=== PATIENT | female | born 1975 | race Caucasian/White ===

== ENCOUNTER 2017-12-23 11:55 | Emergency (ER) | payer OTHER ==
[2017-12-23] MEDS ORDERED: MORPHINE SULFATE 4 MG/ML SYRINGE IVP STA (12:03)
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
[2017-12-23 13:23] VITALS: BP 145/88; PULSE 77; RESP 18; TEMP 98.2
== END 2017-12-23 13:29 | disposition home or self-care (01) ==
LOC: EC 11:55
DX: S16.1XXA Strain of muscle, fascia and tendon at neck level, initial encounter (principal); R00.0 Tachycardia, unspecified; R06.03 Acute respiratory distress; R07.89 Other chest pain; F17.200 Nicotine dependence, unspecified, uncomplicated; Z88.5 Allergy status to narcotic agent; V59.59XA Passenger in pick-up truck or van injured in collision with other motor vehicles in traffic accident, initial encounter; Y93.89 Activity, other specified; Y92.89 Other specified places as the place of occurrence of the external cause
CPT/HCPCS: 71046; 72125; 70450; 99285; 96374; J2270

== ENCOUNTER 2018-01-12 13:23 | Emergency (ER) | payer OTHER ==
[2018-01-12] MEDS ORDERED: ORPHENADRINE 30 MG/ML 2 ML VIAL IM STA (15:03)
[2018-01-12 15:12] VITALS: BP 148/98; PULSE 87; RESP 18; TEMP 98.7
[2018-01-12] MEDS ORDERED: ACETAMINOPHEN TAB 500 MG TAB PO STA (15:12)
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
== END 2018-01-12 15:52 | disposition home or self-care (01) ==
LOC: EC 13:23
DX: S16.1XXA Strain of muscle, fascia and tendon at neck level, initial encounter (principal); M25.512 Pain in left shoulder; F17.200 Nicotine dependence, unspecified, uncomplicated; Z88.5 Allergy status to narcotic agent; Z53.8 Procedure and treatment not carried out for other reasons; V89.2XXA Person injured in unspecified motor-vehicle accident, traffic, initial encounter; Y92.410 Unspecified street and highway as the place of occurrence of the external cause
CPT/HCPCS: 99284

== ENCOUNTER 2018-01-30 21:59 | Inpatient (IN) | payer OTHER ==
[2018-01-30 22:09] VITALS: RESP 18
[2018-01-30] MEDS ORDERED: SODIUM CHLORIDE 0.9% 1,000 ML IV STA (22:09)
[2018-01-30 22:22] LABS: Basophils % (A) 0 %; Eosinophils # (A) 0.1 k/uL (0-0.7); Eosinophils % (A) 1 %; HCT 54.4 % (34.0-46.0); HGB 17.9 gm/dL (11.4-16.0); Lymphocytes # (A) 1.3 k/uL (1.0-4.8); Lymphocytes % (A) 9 %; MCH 30.8 pg (25.0-35.0); MCHC 32.9 g/dL (31.0-37.0); MCV 93.8 fL (80.0-100.0); Mean Platelet Volume 7.2; Monocytes # (A) 0.5 k/uL (0-1.0); Monocytes % (A) 4 %; Neutrophils # (A) 12.2 k/uL (1.3-7.7); Neutrophils % (A) 85 %; Platelet Count 297 k/uL (150-450); RBC 5.79 m/uL (3.80-5.40); RDW 13.6 % (11.5-15.5); WBC 14.3 k/uL (3.8-10.6)
[2018-01-30 22:31] LABS: ALT 20 U/L (9-52); AST 25 U/L (14-36); Albumin 4.6 g/dL (3.5-5.0); Alkaline Phosphatase 79 U/L (38-126); Anion Gap 21 mmol/L; Blood Urea Nitrogen 10 mg/dL (7-17); Calcium 10.2 mg/dL (8.4-10.2); Carbon Dioxide 15 mmol/L (22-30); Chloride 102 mmol/L (98-107); Glucose 168 mg/dL (74-99); Magnesium 1.8 mg/dL (1.6-2.3); Sodium 138 mmol/L (137-145); Total Bilirubin 0.6 mg/dL (0.2-1.3); Total Protein 7.5 g/dL (6.3-8.2)
[2018-01-30 22:42] LABS: D-Dimer 0.53 mg/L FEU (<0.60); INR 1.1 (<1.2); Prothrombin Time 10.6 sec (9.0-12.0)
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
[2018-01-30 22:47] LABS: Partial Thromboplastin Time 21.1 sec (22.0-30.0)
[2018-01-30 22:58] LABS: Creatine Kinase MB 1.3 ng/mL (0.0-2.4)
[2018-01-30 22:59] LABS: Appearance,Urine Clear (Clear); Bilirubin,Urine Negative (Negative); Blood,Urine Small (Negative); Color,Urine Yellow; Glucose,Urine (UA) Negative (Negative); Hyaline Casts,Urine 4 /lpf (0-2); Ketones,Urine 1+ (Negative); Leukocyte Esterase,Urine Negative (Negative); Mucus,Urine Rare /hpf; Nitrite,Urine Negative (Negative); PH, Urine 6.5 (5.0-8.0); Protein,Urine Trace (Negative); RBC,Urine 8 /hpf (0-5); Specific Gravity,Urine 1.012 (1.001-1.035); Squamous Epithelial Cell,Urine 1 /hpf (0-4); Urobilinogen,Urine <2.0 mg/dL (<2.0); WBC,Urine 3 /hpf (0-5)
[2018-01-30 23:05] LABS: Amphetamine Screen,Urine Detected (NotDetected); Barbiturate Screen,Urine Not Detected (NotDetected); Benzodiazepines Screen,Urine Not Detected (NotDetected); Cocaine Screen,Urine Not Detected (NotDetected); Methadone Screen, Urine Not Detected (NotDetected); Opiate Screen,Urine Not Detected (NotDetected); Oxycodone Screen, Urine Not Detected (NotDetected); Phencyclidine Screen,Urine Not Detected (NotDetected); Tricyclic Antidepressant,Urine Not Detected (NotDetected); Urn Cannabinoid Scrn Not Detected (NotDetected)
[2018-01-30 23:18] LABS: Troponin I 0.06 ng/mL (0.000-0.034)
--- NOTE | 2018-01-30 23:26 | XR ---
EXAMINATION TYPE: XR chest 2V DATE OF EXAM: 01/30/2018 COMPARISON: 12/23/2017 HISTORY: Syncope TECHNIQUE: Frontal and lateral views of the chest are obtained. FINDINGS: Heart and mediastinum are normal. Lungs are clear of consolidation. There is no pleural ef fusion. Bony thorax is intact. Pulmonary vascularity is normal. IMPRESSION: No active cardiopulmonary disease. No change.
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
[2018-01-31] MEDS ORDERED: NALOXONE 0.4 MG/ML 1 ML VIAL IV PRN (00:44)
[2018-01-31] MEDS ORDERED: IBUPROFEN 800 MG TAB PO PRN (00:48)
[2018-01-31] MEDS ORDERED: LORazepam 2 MG/ML INJ IV PRN (00:48)
--- NOTE | 2018-01-31 00:50 | ED ---
Medical Decision Making - Medical Decision Making Patient does smoke cigarettes we did discuss smoking cessation and the risks of smoking cigarettes. Additionally we did discuss possibilities of withdrawal symptoms. The patient does not believe she'll have withdrawal symptoms and is declining a nicotine patch at this time. Total conversation lasting 3.1 minutes - Lab Data Result diagrams: 01/30/18 22:08 01/30/18 22:08 Lab Results 01/30/18 01/30/18 01/30/18 Range/Units 22:08 22:08 22:08 WBC 14.3 H (3.8-10.6) k/uL RBC 5.79 H (3.80-5.40) m/uL Hgb 17.9 H (11.4-16.0) gm/dL Hct 54.4 H (34.0-46.0) % MCV 93.8 (80.0-100.0) fL MCH 30.8 (25.0-35.0) pg MCHC 32.9 (31.0-37.0) g/dL RDW 13.6 (11.5-15.5) % Plt Count 297 (150-450) k/uL Neutrophils % 85 % Lymphocytes % 9 % Monocytes % 4 % Eosinophils % 1 % Basophils % 0 % Neutrophils # 12.2 H (1.3-7.7) k/uL Lymphocytes # 1.3 (1.0-4.8) k/uL Monocytes # 0.5 (0-1.0) k/uL Eosinophils # 0.1 (0-0.7) k/uL Basophils # 0.0 (0-0.2) k/uL PT (9.0-12.0) sec INR (<1.2) APTT (22.0-30.0) sec D-Dimer (<0.60) mg/L FEU Sodium 138 (137-145) mmol/L Potassium 4.0 (3.5-5.1) mmol/L Chloride 102 (98-107) mmol/L Carbon Dioxide 15 L (22-30) mmol/L Anion Gap 21 mmol/L BUN 10 (7-17) mg/dL Creatinine 0.50 L (0.52-1.04) mg/dL Est GFR (CKD-EPI)AfAm >90 (>60 ml/min/1.73 sqM) Est GFR (CKD-EPI)NonAf >90 (>60 ml/min/1.73 sqM) Glucose 168 H (74-99) mg/dL Calcium 10.2 (8.4-10.2) mg/dL Magnesium 1.8 (1.6-2.3) mg/dL Total Bilirubin 0.6 (0.2-1.3) mg/dL AST 25 (14-36) U/L ALT 20 (9-52) U/L Alkaline Phosphatase 79 (38-126) U/L Total Creatine Kinase 89 (30-135) U/L CK-MB (CK-2) 1.3 (0.0-2.4) ng/mL CK-MB (CK-2) Rel Index 1.5 Troponin I 0.060 H* (0.000-0.034) ng/mL Total Protein 7.5 (6.3-8.2) g/dL Albumin 4.6 (3.5-5.0) g/dL Urine Color Urine Appearance (Clear) Urine pH (5.0-8.0) Ur Specific [place] (1.001-1.035) Urine Protein (Negative) Urine Glucose (UA) (Negative) Urine Ketones (Negative) Urine Blood (Negative) Urine Nitrite (Negative) Urine Bilirubin (Negative) Urine Urobilinogen (<2.0) mg/dL Ur Leukocyte Esterase (Negative) Urine RBC (0-5) /hpf Urine WBC (0-5) /hpf Ur Squamous Epith Cells (0-4) /hpf Hyaline Casts (0-2) /lpf Urine Mucus (None) /hpf Urine HCG, Qual (Not Detectd) Urine Opiates Screen (NotDetected) Ur Oxycodone Screen (NotDetected) Urine Methadone Screen (NotDetected) Ur Propoxyphene Screen (NotDetected) Ur Barbiturates Screen (NotDetected) U Tricyclic Antidepress (NotDetected) Ur Phencyclidine Scrn (NotDetected) Ur Amphetamines Screen (NotDetected) U Methamphetamines Scrn (NotDetected) U Benzodiazepines Scrn (NotDetected) Urine Cocaine Screen (NotDetected) U Marijuana (THC) Screen (NotDetected) 01/30/18 01/30/18 01/30/18 Range/Units 22:08 22:45 22:45 WBC (3.8-10.6) k/uL RBC (3.80-5.40) m/uL Hgb (11.4-16.0) gm/dL Hct (34.0-46.0) % MCV (80.0-100.0) fL MCH (25.0-35.0) pg MCHC (31.0-37.0) g/dL RDW (11.5-15.5) % Plt Count (150-450) k/uL Neutrophils % % Lymphocytes % % Monocytes % % Eosinophils % % Basophils % % Neutrophils # (1.3-7.7) k/uL Lymphocytes # (1.0-4.8) k/uL Monocytes # (0-1.0) k/uL Eosinophils # (0-0.7) k/uL Basophils # (0-0.2) k/uL PT 10.6 (9.0-12.0) sec INR 1.1 (<1.2) APTT 21.1 L (22.0-30.0) sec D-Dimer 0.53 (<0.60) mg/L FEU Sodium (137-145) mmol/L Potassium (3.5-5.1) mmol/L Chloride (98-107) mmol/L Carbon Dioxide (22-30) mmol/L Anion Gap mmol/L BUN (7-17) mg/dL Creatinine (0.52-1.04) mg/dL Est GFR (CKD-EPI)AfAm (>60 ml/min/1.73 sqM) Est GFR (CKD-EPI)NonAf (>60 ml/min/1.73 sqM) Glucose (74-99) mg/dL Calcium (8.4-10.2) mg/dL Magnesium (1.6-2.3) mg/dL Total Bilirubin (0.2-1.3) mg/dL AST (14-36) U/L ALT (9-52) U/L Alkaline Phosphatase (38-126) U/L Total Creatine Kinase (30-135) U/L CK-MB (CK-2) (0.0-2.4) ng/mL CK-MB (CK-2) Rel Index Troponin I (0.000-0.034) ng/mL Total Protein (6.3-8.2) g/dL Albumin (3.5-5.0) g/dL Urine Color Yellow Urine Appearance Clear (Clear) Urine pH 6.5 (5.0-8.0) Ur Specific [place] 1.012 (1.001-1.035) Urine Protein Trace H (Negative) Urine Glucose (UA) Negative (Negative) Urine Ketones 1+ H (Negative) Urine Blood Small H (Negative) Urine Nitrite Negative (Negative) Urine Bilirubin Negative (Negative) Urine Urobilinogen <2.0 (<2.0) mg/dL Ur Leukocyte Esterase Negative (Negative) Urine RBC 8 H (0-5) /hpf Urine WBC 3 (0-5) /hpf Ur Squamous Epith Cells 1 (0-4) /hpf Hyaline Casts 4 H (0-2) /lpf Urine Mucus Rare H (None) /hpf Urine HCG, Qual Not Detected (Not Detectd) Urine Opiates Screen Not Detected (NotDetected) Ur Oxycodone Screen Not Detected (NotDetected) Urine Methadone Screen Not Detected (NotDetected) Ur Propoxyphene Screen Not Detected (NotDetected) Ur Barbiturates Screen Not Detected (NotDetected) U Tricyclic Antidepress Not Detected (NotDetected) Ur Phencyclidine Scrn Not Detected (NotDetected) Ur Amphetamines Screen Detected H (NotDetected) U Methamphetamines Scrn Detected H (NotDetected) U Benzodiazepines Scrn Not Detected (NotDetected) Urine Cocaine Screen Not Detected (NotDetected) U Marijuana (THC) Screen Not Detected (NotDetected) Disposition Clinical Impression: Syncope, Elevated troponin, Post-ictal state Disposition: ADMITTED IP TO THIS [facility] Condition: Stable Referrals: Linnea Domínguez MD [Primary Care Provider] - 1-2 days
[2018-01-31 07:42] LABS: Creatine Kinase MB 5.8 ng/mL (0.0-2.4); Troponin I 0.101 ng/mL (0.000-0.034)
[2018-01-31 08:33] LABS: Glucose,Whole Blood 104 mg/dL (75-99)
[2018-01-31] MEDS ORDERED: FAMOTIDINE 20 MG TAB PO SCH (09:00)
[2018-01-31 09:57] VITALS: TEMP 97
[2018-01-31] MEDS ORDERED: KETOROLAC 30 MG/ML 1 ML VIAL IVP PRN (10:52)
[2018-01-31 12:44] VITALS: BP 143/98; PULSE 107
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
[2018-01-31] MEDS ORDERED: SODIUM CHLORIDE 0.9% 1,000 ML IV SCH (13:15)
[2018-01-31 13:42] LABS: Troponin I 0.061 ng/mL (0.000-0.034)
--- NOTE | 2018-01-31 18:17 | P.DS ---
Providers Date of admission: 01/31/18 00:44 Attending physician: Abdi Aldrich Consults: 01/31/18 00:45 Consult Physician Routine Consulting Provider: Brennen Miller Consult Reason/Comments: Evaluation for syncope possible seizure Do you want consulting provider notified?: Yes, Notify in am 01/31/18 00:46 Consult Physician Routine Consulting Provider: Samir Fabian Consult Reason/Comments: Syncope, elevated troponin Do you want consulting provider notified?: Yes, Notify in am Primary care physician: Linnea Domínguez Hospital Course: Patient left AMA Patient Condition at Discharge: Stable Plan - Discharge Summary Discharge Rx Participant: No New Discharge Prescriptions: No Action Ibuprofen [Motrin Ib] 800 mg PO Q4H PRN PRN Reason: Pain Discharge Medication List Ibuprofen [Motrin Ib] 800 mg PO Q4H PRN 01/30/18 [History] Follow up Appointment(s)/Referral(s): Linnea Domínguez MD [Primary Care Provider] - 1-2 days Discharge Disposition: HOME SELF-CARE
[2018-01-31] MEDS ORDERED: METOPROLOL TARTRATE 25 MG TAB PO SCH (21:00)
--- NOTE | 2018-02-01 08:32 | ECHOF ---
Referral Reason:nstemi MEASUREMENTS -------- HEIGHT: 165.1 cm WEIGHT: 54.4 kg BP: IVSd: 1.2 cm (0.6 - 1.1) LVIDd: 4.2 cm (3.9 - 5.3) LVPWd: 1.0 cm (0.6 - 1.1) IVSs: 1.3 cm LVIDs: 3.7 cm LVPWs: 0.9 cm LA Diam: 2.7 cm (2.7 - 3.8) LAESV Index (A-L): 21.72 ml/m Ao Diam: 3.5 cm (2.0 - 3.7) AV Cusp: 1.2 cm (1.5 - 2.6) LA Diam: 3.3 cm (2.7 - 3.8) MV EXCURSION: 21.345 mm (> 18.000) MV EF SLOPE: 139 mm/s (70 - 150) EPSS: 0.2 cm MV E Norman: 0.54 m/s MV DecT: 229 ms MV A [place]: 0.49 m/s MV E/A Ratio: 1.11 RAP: 5.00 mmHg RVSP: 10.41 mmHg FINDINGS -------- Sinus rhythm. This was a technically good study. The left ventricular size is normal. There is mild concentric left ventricular hypertrophy. Overa ll left ventricular systolic function is low-normal with, an EF between 50 - 55 %. The right ventricle is normal in size. The left atrial size is normal. The right atrial size is normal. The aortic valve is trileaflet, and appears structurally normal. No aortic stenosis or regurgitation. Mild mitral regurgitation is present. Mild tricuspid regurgitation present. There is no evidence of pulmonary hypertension. The right v entricular systolic pressure, as measured by Doppler, is 10.41mmHg. Trace/mild (physiologic) pulmonic regurgitation. The aortic root size is normal. There is no pericardial effusion. CONCLUSIONS -------- 1. The left ventricular size is normal. 2. There is mild concentric left ventricular hypertrophy. 3. Overall left ventricular systolic function is low-normal with, an EF between 50 - 55 %. 4. The aortic valve is trileaflet, and appears structurally normal. No aortic stenosis or regurgitati on. 5. Mild mitral regurgitation is present. 6. Mild tricuspid regurgitation present. 7. There is no evidence of pulmonary hypertension. 8. The right ventricular systolic pressure, as measured by Doppler, is 10.41mmHg. 9. Trace/mild (physiologic) pulmonic regurgitation. 10. The aortic root size is normal. 11. There is no pericardial effusion. [employer]: Minnie Teran RDCS
[2018-02-01] MEDS ORDERED: ASPIRIN 81 MG PO SCH (09:00)
== END 2018-01-31 16:31 | disposition left against medical advice (07) | DRG 312 ==
LOC: EC 21:59 → 6SEL 01-31 00:44
PROVIDERS: ADMIT Internal Medicine; ATTEND Internal Medicine
DX: R55 Syncope and collapse (principal); D72.829 Elevated white blood cell count, unspecified; F10.10 Alcohol abuse, uncomplicated; F17.210 Nicotine dependence, cigarettes, uncomplicated; R00.0 Tachycardia, unspecified; K21.9 Gastro-esophageal reflux disease without esophagitis; R77.8 Other specified abnormalities of plasma proteins; Z71.41 Alcohol abuse counseling and surveillance of alcoholic; Z71.6 Tobacco abuse counseling; Z80.41 Family history of malignant neoplasm of ovary; Z82.49 Family history of ischemic heart disease and other diseases of the circulatory system; Z82.3 Family history of stroke; Z88.5 Allergy status to narcotic agent; Z91.012 Allergy to eggs
CPT/HCPCS: 36415; 70450; 71046; 80053; 80306; 81001; 81025; 82550; 82553; 83605; 83735; 84484; 85025; 85379; 85610; 85730; 93005; 93306

== ENCOUNTER 2018-02-06 12:38 | Emergency (ER) | payer OTHER ==
[2018-02-06 12:49] VITALS: RESP 18
[2018-02-06 12:51] LABS: Glucose,Whole Blood 85 mg/dL (75-99)
[2018-02-06] MEDS ORDERED: RX INFO: IV CONTRAST WAS GIVEN 1 EACH MISC MISCELLANE PRN (13:02)
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
[2018-02-06] MEDS ORDERED: METOCLOPRAMIDE 5 MG/ML 2 ML VIAL IVP STA (13:43)
[2018-02-06] MEDS ORDERED: ACETAMINOPHEN IV (For NPO) 1,000 MG in EMPTY BAG 1 BAG IVPB STA (13:43)
[2018-02-06] MEDS ORDERED: diphenhydrAMINE 50 MG/ML 1 ML VIAL IVP STA (13:44)
[2018-02-06] MEDS ORDERED: SODIUM CHLORIDE 0.9% 1,000 ML IV ONE ×2 (13:44→14:53)
[2018-02-06 13:55] LABS: Basophils # (A) 0.1 k/uL (0-0.2); Basophils % (A) 1 %; Eosinophils # (A) 0.2 k/uL (0-0.7); Eosinophils % (A) 3 %; HCT 51.3 % (34.0-46.0); Lymphocytes # (A) 1.6 k/uL (1.0-4.8); Lymphocytes % (A) 29 %; MCH 30.7 pg (25.0-35.0); MCHC 33.1 g/dL (31.0-37.0); MCV 92.7 fL (80.0-100.0); Mean Platelet Volume 7.4; Monocytes # (A) 0.6 k/uL (0-1.0); Monocytes % (A) 10 %; Neutrophils # (A) 3.1 k/uL (1.3-7.7); Neutrophils % (A) 55 %; Platelet Count 256 k/uL (150-450); RBC 5.54 m/uL (3.80-5.40); RDW 13.4 % (11.5-15.5); WBC 5.7 k/uL (3.8-10.6)
[2018-02-06 13:59] LABS: Amorphous Sediment,Urine Rare /hpf; Appearance,Urine Clear (Clear); Bilirubin,Urine Negative (Negative); Blood,Urine Small (Negative); Color,Urine Light Yellow; Glucose,Urine (UA) Negative (Negative); Ketones,Urine Negative (Negative); Leukocyte Esterase,Urine Trace (Negative); Nitrite,Urine Negative (Negative); Protein,Urine Negative (Negative); RBC,Urine 1 /hpf (0-5); Specific Gravity,Urine 1.005 (1.001-1.035); Squamous Epithelial Cell,Urine 1 /hpf (0-4); Urobilinogen,Urine <2.0 mg/dL (<2.0)
[2018-02-06 14:05] LABS: ALT 29 U/L (9-52); AST 21 U/L (14-36); Albumin 4.3 g/dL (3.5-5.0); Alkaline Phosphatase 76 U/L (38-126); Anion Gap 15 mmol/L; Blood Urea Nitrogen 11 mg/dL (7-17); Carbon Dioxide 22 mmol/L (22-30); Chloride 105 mmol/L (98-107); Glucose 87 mg/dL (74-99); Sodium 142 mmol/L (137-145); Total Bilirubin 0.4 mg/dL (0.2-1.3); Total Protein 6.9 g/dL (6.3-8.2)
[2018-02-06 14:07] LABS: Amphetamine Screen,Urine Not Detected (NotDetected); Barbiturate Screen,Urine Not Detected (NotDetected); Benzodiazepines Screen,Urine Not Detected (NotDetected); Cocaine Screen,Urine Not Detected (NotDetected); Methadone Screen, Urine Not Detected (NotDetected); Opiate Screen,Urine Not Detected (NotDetected); Oxycodone Screen, Urine Not Detected (NotDetected); Phencyclidine Screen,Urine Not Detected (NotDetected); Tricyclic Antidepressant,Urine Not Detected (NotDetected); Urn Cannabinoid Scrn Not Detected (NotDetected)
[2018-02-06 14:10] LABS: Partial Thromboplastin Time 23.9 sec (22.0-30.0)
[2018-02-06 14:18] LABS: Creatine Kinase 110 U/L (30-135)
[2018-02-06 14:31] LABS: Creatine Kinase MB 0.4 ng/mL (0.0-2.4); Troponin I <0.012 ng/mL (0.000-0.034)
--- NOTE | 2018-02-06 14:42 | CT ---
EXAMINATION TYPE: CT brain cspine wo con DATE OF EXAM: 02/06/2018 COMPARISON: CT brain and cervical spine December 23, 2017. HISTORY: Migraine headaches and neck pain. CT DLP: 1412 mGycm. Automated Exposure Control for Dose Reduction was Utilized. TECHNIQUE: CT scan of the head and cervical spine are performed without contrast. FINDINGS: There is no acute intracranial hemorrhage, mass effect, or midline shift identified. The ventricles and sulci are within normal limits in size. Moreno-white matter differentiation is maintain ed. The globes are intact and the visualized sinuses are clear. The calvarium is intact. Cervical spine is visualized in its entirety from C1 through upper thoracic levels and demonstrates s atisfactory alignment without evidence of acute fracture or dislocation. Prevertebral soft tissue ap pears within normal limits. The C1-C2 articulation is within normal limits on the coronal images. . Vertebral body heights and disc space heights are maintained. No large posterior disc herniations ar e seen on sagittal images. Spinal canal is preserved. Axial images are grossly unremarkable. Thyroid gland is normal in size. There is mild to moderate biapical pleural/parenchymal scarring present. IMPRESSION: 1. There is no acute fracture or dislocation evident in the cervical spine. 2. No acute intracranial hemorrhage, mass effect, or midline shift is seen.
[2018-02-06] MEDS ORDERED: KETOROLAC 30 MG/ML 1 ML VIAL IVP STA (14:53)
--- NOTE | 2018-02-06 15:12 | XR ---
EXAMINATION TYPE: XR chest 2V DATE OF EXAM: 02/06/2018 COMPARISON: Chest x-ray from one week ago. HISTORY: Headache and weakness. TECHNIQUE: Frontal and lateral views of the chest are obtained. FINDINGS: Underlying emphysematous change may be present. Overlying EKG wires are noted. There is no focal air space opacity, pleural effusion, or pneumothorax seen. The cardiac silhouette size is cur rently mildly enlarged. The osseous structures are intact. IMPRESSION: No acute pulmonary process.
[2018-02-06 15:53] VITALS: BP 140/64; PULSE 77; TEMP 97.4
== END 2018-02-06 16:06 | disposition home or self-care (01) ==
LOC: EC 12:38
DX: R51 Headache (principal); R41.0 Disorientation, unspecified; R11.0 Nausea; R20.2 Paresthesia of skin; Z86.69 Personal history of other diseases of the nervous system and sense organs; M54.2 Cervicalgia; F17.200 Nicotine dependence, unspecified, uncomplicated; Z88.5 Allergy status to narcotic agent; Z91.012 Allergy to eggs; Z53.8 Procedure and treatment not carried out for other reasons
CPT/HCPCS: 36415; 70450; 71046; 72125; 80053; 80306; 81001; 81025; 82550; 82553; 84484; 85025; 85610; 85730; 93005; 99285

== ENCOUNTER → 2018-09-11 | Outpatient (CLI) | payer BC ==
--- NOTE | 2018-09-11 12:38 | XR ---
EXAMINATION TYPE: XR chest 2V DATE OF EXAM: 09/11/2018 COMPARISON: 02/06/2018 HISTORY: Preoperative evaluation. TECHNIQUE: Frontal and lateral views of the chest are obtained. FINDINGS: There is no focal air space opacity, pleural effusion, or pneumothorax seen. The cardiac silhouette size is upper limits of normal. The osseous structures are intact. IMPRESSION: No acute cardiopulmonary process.
== END | disposition home or self-care (01) ==
LOC: RADXRYALE 11:40
PROVIDERS: ATTEND Internal Medicine
DX: Z01.818 Encounter for other preprocedural examination (principal)
CPT/HCPCS: 71046

== ENCOUNTER → 2019-03-01 | Outpatient (CLI) | payer OTHER ==
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
== END | disposition home or self-care (01) ==
LOC: RADMRIMAIN 18:50
PROVIDERS: ATTEND Orthopaedic Surgery Orthopaedic Surgery of the Spine
DX: M50.122 Cervical disc disorder at C5-C6 level with radiculopathy (principal); Z98.890 Other specified postprocedural states; Z98.1 Arthrodesis status
CPT/HCPCS: 72156; A9585

== ENCOUNTER 2021-09-28 11:26 | Inpatient (IN) | payer OTHER ==
[2021-09-28] MEDS ORDERED: SODIUM CHLORIDE 0.9% 1,000 ML IV STA (13:14)
[2021-09-28] MEDS ORDERED: AMPICILLIN-SULBACTAM 3 GM in SODIUM CHLORIDE 0.9% 100 ML IVPB STA (13:14)
[2021-09-28] MEDS ORDERED: DEXAMETHASONE SOD PHOSPHATE 10 MG/ML 1 ML VIAL IVP STA (13:16)
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
[2021-09-28 14:05] LABS: Basophils % (A) 0 %; Eosinophils # (A) 0.1 k/uL (0-0.7); Eosinophils % (A) 1 %; HCT 46.9 % (34.0-46.0); HGB 15.3 gm/dL (11.4-16.0); Lymphocytes # (A) 0.9 k/uL (1.0-4.8); Lymphocytes % (A) 7 %; MCH 32.7 pg (25.0-35.0); MCHC 32.6 g/dL (31.0-37.0); MCV 100.6 fL (80.0-100.0); Mean Platelet Volume 7.3; Monocytes # (A) 1.1 k/uL (0-1.0); Monocytes % (A) 8 %; Neutrophils # (A) 10.7 k/uL (1.3-7.7); Neutrophils % (A) 82 %; Platelet Count 172 k/uL (150-450); RBC 4.66 m/uL (3.80-5.40); RDW 12.8 % (11.5-15.5); WBC 13.1 k/uL (3.8-10.6)
[2021-09-28 14:32] LABS: ALT 11 U/L (4-34); AST 29 U/L (14-36); African American GFR (CKD) >90 (>60 ml/min/1.73 sqM); Albumin 3.6 g/dL (3.5-5.0); Alkaline Phosphatase 98 U/L (38-126); Anion Gap 12 mmol/L; Blood Urea Nitrogen 7 mg/dL (7-17); Calcium 9.3 mg/dL (8.4-10.2); Carbon Dioxide 24 mmol/L (22-30); Chloride 100 mmol/L (98-107); Glucose 124 mg/dL (74-99); Non-African American GFR(CKD) >90 (>60 ml/min/1.73 sqM); Sodium 136 mmol/L (137-145); Total Bilirubin 0.7 mg/dL (0.2-1.3); Total Protein 6.4 g/dL (6.3-8.2)
--- NOTE | 2021-09-28 14:57 | CT ---
EXAMINATION TYPE: CT soft tissue neck w con DATE OF EXAM: 09/28/2021 COMPARISON: None HISTORY: Left sided mouth pain with neck and jaw redness post attempted tooth extraction. + Difficul ty swallowing. CT DLP: 183.6 mGycm CONTRAST: Patient injected with 100 mL of Isovue 300. TECHNIQUE: Axial images at 3 mm thick sections. Reconstructed images in the coronal plane and sagitt al plane are reviewed. FINDINGS: Limited CT sections are obtained the lung apices. The lung apices appear clear. CT neck: The torus tubarius and fossa of Rosenmuller are normal. Stroke Belt Sander Operator spaces are normal. Para nasal sinuses and mastoid air cells are clear. Submandibular glands, are normal. Parapharyngeal spaces are normal. There are scattered small lymph nodes bilaterally in the submandibular and submental space. Jugulodigastric lymph node is present 0. 9 cm on the left. Parotid glands appear normal. The hypopharynx appears within normal limits. Vocal cord level appear symmetrical. Thyroid as visualized is normal. Prior cervical fusion is evident. Degenerative disc changes present at C6-7. IMPRESSIONS: 1. Scattered small lymph nodes within the left neck fewer smaller lymph nodes present on the right. 2. No suspicious abscess formation. 3. Follow-up can be performed as clinically indicated.
[2021-09-28] MEDS ORDERED: VANCOMYCIN 1,000 MG in SODIUM CHLORIDE 0.9% 250 ML IVPB ONE (15:00)
[2021-09-28] MEDS ORDERED: VANCOMYCIN IV PER PHARMACY 1 EACH MISC MISCELLANE PRN (15:57)
[2021-09-28] MEDS ORDERED: ONDANSETRON 4 MG/2 ML VIAL IVP PRN (17:00)
[2021-09-28] MEDS ORDERED: NALOXONE 0.4 MG/ML 1 ML VIAL IV PRN (17:00)
[2021-09-28] MEDS: SODIUM CHLORIDE 0.9% 1,000 ML IV SCH (17:39)
[2021-09-28] MEDS ORDERED: ALPRAZolam 0.25 MG TAB PO PRN (18:50)
[2021-09-28] MEDS ORDERED: bisacodyL 5 MG TABLET.DR PO PRN (18:50)
[2021-09-28] MEDS ORDERED: ACETAMINOPHEN TAB 325 MG TAB PO PRN (18:50)
[2021-09-28] MEDS ORDERED: CALCIUM CARBONATE 500 MG CHEWABLE PO PRN (18:50)
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
[2021-09-28] MEDS: HYDROcodone/APAP 10-325MG 1 EACH TAB PO PRN (19:48)
[2021-09-28] MEDS: AMPICILLIN-SULBACTAM 3 GM in SODIUM CHLORIDE 0.9% 100 ML IVPB SCH (19:48)
[2021-09-28] MEDS: KETOROLAC 15 MG/ML 1 ML VIAL IVP PRN (22:06)
[2021-09-29] MEDS: AMPICILLIN-SULBACTAM 3 GM in SODIUM CHLORIDE 0.9% 100 ML IVPB SCH ×4 (03:06→20:31)
[2021-09-29] MEDS: HYDROcodone/APAP 10-325MG 1 EACH TAB PO PRN ×3 (03:17→19:25)
[2021-09-29] MEDS: BENZOCAINE/MENTHOL LOZENG 1 EACH LOZENGE MUCOUS MEM PRN ×4 (03:20→19:23)
[2021-09-29] MEDS: SODIUM CHLORIDE 0.9% 1,000 ML IV SCH ×2 (04:17→09:17)
[2021-09-29] MEDS: KETOROLAC 15 MG/ML 1 ML VIAL IVP PRN (05:55)
[2021-09-29 06:02] LABS: HCT 42.3 % (34.0-46.0); HGB 13.5 gm/dL (11.4-16.0); MCH 32.4 pg (25.0-35.0); MCHC 31.9 g/dL (31.0-37.0); MCV 101.7 fL (80.0-100.0); Mean Platelet Volume 7.5; Platelet Count 186 k/uL (150-450); RBC 4.15 m/uL (3.80-5.40); RDW 12.7 % (11.5-15.5); WBC 10.5 k/uL (3.8-10.6)
[2021-09-29 06:18] LABS: African American GFR (CKD) >90 (>60 ml/min/1.73 sqM); Anion Gap 7 mmol/L; Blood Urea Nitrogen 8 mg/dL (7-17); Calcium 8.4 mg/dL (8.4-10.2); Carbon Dioxide 24 mmol/L (22-30); Chloride 108 mmol/L (98-107); Glucose 128 mg/dL (74-99); Magnesium 2.2 mg/dL (1.6-2.3); Non-African American GFR(CKD) >90 (>60 ml/min/1.73 sqM); Phosphorus 2.9 mg/dL (2.5-4.5); Potassium 4.1 mmol/L (3.5-5.1); Sodium 139 mmol/L (137-145)
[2021-09-29] MEDS: VANCOMYCIN 1,000 MG in SODIUM CHLORIDE 0.9% 250 ML IVPB SCH ×3 (07:48→17:26)
[2021-09-29] MEDS ORDERED: NON FORMULARY DRUG (Turmeric Root Extract [Turmeric] 500 MG Capsule) PO SCH (09:00)
[2021-09-29] MEDS ORDERED: NON FORMULARY DRUG (Omega-3 Fatty Acids/Fish Oil [Fish Oil 1,000 Mg Softgel] 1 EACH Capsul PO SCH (09:00)
[2021-09-29] MEDS: HYDROmorphone 0.5 MG/0.5 ML SYRINGE IVP PRN (09:14)
[2021-09-29] MEDS: CHOLECALCIFEROL 25 MCG (1000 IU) TABLET PO SCH (09:15)
[2021-09-29] MEDS: ASCORBIC ACID 500 MG TAB PO SCH (09:15)
[2021-09-29] MEDS: VITAMIN E (DL,TOCOPHERYL ACET) 400 UNIT (180 MG) CAP PO SCH (10:15)
--- NOTE | 2021-09-29 11:22 | CT ---
EXAMINATION TYPE: CT facial bones wo con DATE OF EXAM: 09/29/2021 COMPARISON: CT soft tissue neck 09/28/2021 HISTORY: Cellulitis, tooth extraction, anterior neck edema CT DLP: 183.6 mGycm Automated exposure control for dose reduction was used. TECHNIQUE: Helical imaging performed for the soft tissue neck. Reconstructed images were performed of the jaw for interpretation. FINDINGS: Mandible is intact. Impacted wisdom teeth are suspected. No evident fracture or dislocation . No periapical abscess is evident. See dictated report soft tissue neck Wo 05/11/2021. IMPRESSION: As above
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
[2021-09-29 14:06] VITALS: BMI 18.6
[2021-09-29] MEDS: DEXAMETHASONE SOD PHOSPHATE 10 MG/ML 1 ML VIAL IVP SCH ×2 (14:17→17:25)
[2021-09-29] MEDS: KETOROLAC 30 MG/ML 1 ML VIAL IVP PRN (14:17)
[2021-09-29] MEDS: LACTATED RINGERS 1,000 ML IV SCH (15:31)
--- NOTE | 2021-09-29 18:13 | CONS ---
CONSULTATION DATE OF CONSULT: 09/29/2021. CHIEF COMPLAINT: My jaw is swollen. HISTORY OF PRESENT ILLNESS: The patient is a 46-year-old female who was having dental pain to the left lower quadrant of her mandible and was seen by a dentist approximately 5 days prior to admission. The dentist attempted to extract the tooth and was unsuccessful. She was not prescribed antibiotics and was asked to follow up with an oral surgeon. Five days after the aborted procedure, the patient had significant pain and swelling that extended into the left submandibular region and down the neck. She then went to the ER where she was evaluated and was subsequently admitted and started on IV Unasyn and Vanco and given steroid. The patient is currently feeling much better with a decrease in swelling. PAST MEDICAL HISTORY: Unremarkable. PAST SURGICAL HISTORY: Significant for a neck surgery with a fusion. MEDICATIONS: Include [place]. ALLERGIES: She has no known drug allergies. PHYSICAL EXAMINATION: Reveals mild soft tissue swelling of the left mandible and submandibular region with uricemia extending down toward her to clavicle. The area is soft and mildly tender. Intraorally, she exhibits no trismus. There is mild swelling of the left lingual gutter and it is tender to palpation. Tooth #19 is tender to palpation and mobile. There is no pharyngeal swelling. LABORATORY DATA: Her labs exhibit a normal white count and her vitals are stable. She is afebrile. She has mild odynophagia on swallowing. ASSESSMENT: Abscessed tooth #19 with the left submandibular space infection. PLAN: The patient is tolerating the IV antibiotics well. I agree with the IV Unasyn, then she can be discharged in the next day or so and forwarded to my office for the surgical removal of tooth #19 under IV sedation. MMODL / IJN: [id number] /
[2021-09-30] MEDS: AMPICILLIN-SULBACTAM 3 GM in SODIUM CHLORIDE 0.9% 100 ML IVPB SCH ×2 (01:22→09:59)
[2021-09-30] MEDS: BENZOCAINE/MENTHOL LOZENG 1 EACH LOZENGE MUCOUS MEM PRN ×2 (01:22→06:09)
[2021-09-30] MEDS: KETOROLAC 30 MG/ML 1 ML VIAL IVP PRN (01:23)
[2021-09-30] MEDS: DEXAMETHASONE SOD PHOSPHATE 10 MG/ML 1 ML VIAL IVP SCH ×2 (01:24→06:01)
[2021-09-30] MEDS: HYDROcodone/APAP 10-325MG 1 EACH TAB PO PRN ×2 (01:34→09:05)
[2021-09-30] MEDS: LACTATED RINGERS 1,000 ML IV SCH (04:10)
[2021-09-30] MEDS: HYDROmorphone 0.5 MG/0.5 ML SYRINGE IVP PRN (06:00)
[2021-09-30 06:01] LABS: HCT 43.6 % (34.0-46.0); HGB 13.8 gm/dL (11.4-16.0); MCH 32.3 pg (25.0-35.0); MCHC 31.7 g/dL (31.0-37.0); MCV 101.9 fL (80.0-100.0); Mean Platelet Volume 7.6; Platelet Count 198 k/uL (150-450); RBC 4.28 m/uL (3.80-5.40); RDW 12.7 % (11.5-15.5); WBC 7.4 k/uL (3.8-10.6)
[2021-09-30 06:18] LABS: African American GFR (CKD) >90 (>60 ml/min/1.73 sqM); Anion Gap 5 mmol/L; Blood Urea Nitrogen 8 mg/dL (7-17); Carbon Dioxide 25 mmol/L (22-30); Chloride 109 mmol/L (98-107); Glucose 163 mg/dL (74-99); Non-African American GFR(CKD) >90 (>60 ml/min/1.73 sqM); Potassium 4.7 mmol/L (3.5-5.1); Sodium 139 mmol/L (137-145)
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
[2021-09-30] MEDS ORDERED: methylPREDNISolone 4 MG TAB TAPER PO SCH (09:00)
[2021-09-30 09:38] VITALS: PULSE 64; RESP 16; TEMP 97.9
[2021-09-30] MEDS: VITAMIN E (DL,TOCOPHERYL ACET) 400 UNIT (180 MG) CAP PO SCH (09:55)
[2021-09-30] MEDS: ASCORBIC ACID 500 MG TAB PO SCH (09:55)
[2021-09-30] MEDS: CHOLECALCIFEROL 25 MCG (1000 IU) TABLET PO SCH (09:55)
[2021-09-30 11:35] VITALS: BP 158/97
--- NOTE | 2021-09-30 14:30 | PN ---
PROGRESS NOTE DATE OF SERVICE: 09/30/2021 REASON FOR FOLLOWUP: Left lower jaw cellulitis from infected tooth. INTERVAL HISTORY: Patient is afebrile. The patient was seen on rounds this morning, breathing comfortably. Overall pain and discomfort to the left lower jaw area has decreased. No chest pain, shortness of breath or cough. No abdominal pain or diarrhea. PHYSICAL EXAMINATION: Blood pressure 158/97 with a pulse of 54, temperature is 97.9. She is 100% on room air. General description is a middle-aged female up in the bed in no distress. HEENT examination: Left lower jaw currently with no swelling, no redness, no tenderness. LUNGS: Unlabored breathing, clear to auscultation anteriorly. HEART S1, S2. Regular rate and rhythm. ABDOMEN: Soft, no tenderness. LAB: Hemoglobin 13, white count 10.4, creatinine 0.39. DIAGNOSTIC IMPRESSION AND PLAN: This patient with left lower jaw cellulitis from infected tooth. The patient is scheduled to follow up with oral surgeon in outpatient setting for antibiotic in the form of Augmentin 875 b.i.d. for 10 days. Should be more than enough. Close outpatient followup. MMODL / IJN: [id number] /
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
== END 2021-09-30 13:30 | disposition home or self-care (01) | DRG 872 ==
LOC: EC 11:26 → 4SSUR 17:03
PROVIDERS: ADMIT Internal Medicine; ATTEND Internal Medicine
DX: A41.9 Sepsis, unspecified organism (principal); K12.2 Cellulitis and abscess of mouth; L03.221 Cellulitis of neck; K21.9 Gastro-esophageal reflux disease without esophagitis; Z20.822 Contact with and (suspected) exposure to COVID-19; K04.7 Periapical abscess without sinus; Z87.891 Personal history of nicotine dependence; Z91.012 Allergy to eggs; Z88.5 Allergy status to narcotic agent; Z98.1 Arthrodesis status; Z98.51 Tubal ligation status
CPT/HCPCS: 36415; 70486; 70491; 80048; 80053; 83605; 83735; 84100; 85025; 85027; 87040; 87635; 96361; 96365; 96375; 99285